=== PATIENT | male | born 1985 | race Caucasian/White ===

== ENCOUNTER 2022-01-03 01:45 | Emergency (ER) | payer MEDICARE, MEDICAID ==
[~2022-01-03] VITALS: Ht 183 cm; Wt 132.0 kg
[~2022-01-03 01:45] MED LIST: ABILIFY; CEPH500C PO; CLIN-144 PO; GBPN100C PO; RESPERIDOL; SERT50TA PO; TRAZODONE; [UNRECOGNIZED DRUG - OTHER]
--- NOTE | 2022-01-03 02:11 | ED Psychosocial ---
General Chief Complaint: Psych/Social Disorder Stated Complaint: MEDICAL CLEARANCE Source: patient Exam Limitations: no limitations (GRETA HORTA MD) History of Present Illness Date Seen by Provider: Jan 03, 2022 Time Seen by Provider: 01:58 Initial Comments Patient is a 36-year-old male with a history of bipolar disorder who presents to the emergency department in the custody of police for "medical screening". Apparently family called police this evening because the patient was acting bizarrely. He has been hypersexual. He had a screened by mental health [facility] [employer] and mental health recommended placement in a psychiatric facility. They are pursuing involuntary commitment. Patient presents acting manic. He is hypersexual talking about vaginas and using various terminology to describe them. He is constantly talking, not making much sense but is aware that he is at the hospital and would like to go home so he could smoke while pot. He does not really answer questions directly. He initially declines evaluation for placement. Does not want to have his blood drawn. Appears to be responding to internal stimuli. HPI, review of systems, past medical family social history impossible to obtain secondary to his manic state. Timing/Duration: this evening Severity: severe (GRETA HORTA MD) Allergies and Home Medications Allergies Coded Allergies: aspirin (Verified Allergy, Unknown, 08/06/05) Patient Home Medication List Home Medication List Reviewed: Yes (GRETA HORTA MD) , (Reported) Entered as Reported by: FERCHO ISIDRO on 12/01/081952 Cephalexin Monohydrate (Cephalexin) 500 Mg Capsule, 1 EACH PO QID Prescribed by: CRISTEL CROSS on 07/04/13 2335 Clindamycin HCl (Clindamycin HCl) 300 Mg Capsule, 300 MG PO TID Prescribed by: TALA REED on 02/11/15 153 Sertraline Hcl (Zoloft) 50 Mg Tablet, 1 TAB PO DAILY, (Reported) Entered as Reported by: JORGE LUIS ROJAS on 07/04/132035 [Phanap] , (Reported) Entered as Reported by: JOHN PAUL WARNER on 07/04/11 1524 Review of Systems Constitutional: see HPI difficult to obtain secondary to manic state (GRETA HORTA MD) Past Ustlcxm-Saicfj-Ssyauf Hx Past Medical History Reproductive Disorders: No Sexually Transmitted Disease: No ADD/ADHD, Suicide Attempts, Bipolar (GRETA HORTA MD) Physical Exam Vital Signs - First Documented 01/03/22 01:55 Temp 36.0 Pulse 55 Resp 18 B/P (MAP) 147/101 (116) Pulse Ox 100 O2 Delivery Room Air (CRISTEL BHAGAT MD) Capillary Refill : (GRETA HORTA MD) Height, Weight, BMI Height: 6'9" Weight: 290lbs. oz. 131.719068sa; BMI Method:Stated General Appearance: no apparent distress, thin HEENT: PERRL/EOMI Neck: normal inspection Respiratory: normal breath sounds, no respiratory distress, no accessory muscle use Cardiovascular: regular rate, rhythm Extremities: normal range of motion Neurologic/Psychiatric: alert Appearance/Memory: disheveled, impaired insight Behavior/Eye Contact: increased rate of speech Thoughts/Hallucinations: flight of ideas, other (hyper sexual) Skin: normal color, warm/dry (GRETA HORTA MD) Progress/Results/Core Measures Results/Orders Lab Results Laboratory Tests Test 01/03/22 02:47 01/03/22 03:26 01/03/22 04:44 Range/Units Urine Color DARK YELLOW Urine Clarity CLEAR Urine pH 5.5 5-9 Urine Specific Concepcion >=1.030 1.016-1.022 Urine Protein NEGATIVE NEGATIVE Urine Glucose (UA) NEGATIVE NEGATIVE Urine Ketones 1+ H NEGATIVE Urine Nitrite NEGATIVE NEGATIVE Urine Bilirubin NEGATIVE NEGATIVE Urine Urobilinogen 0.2 < = 1.0 MG/DL Urine Leukocyte Esterase NEGATIVE NEGATIVE Urine RBC (Auto) NEGATIVE NEGATIVE Urine RBC NONE /HPF Urine WBC RARE /HPF Urine Squamous Epithelial Cells 2-5 /HPF Urine Crystals NONE /LPF Urine Bacteria NEGATIVE /HPF Urine Casts NONE /LPF Urine Mucus SMALL H /LPF Urine Culture Indicated NO Urine Opiates Screen NEGATIVE NEGATIVE Urine Oxycodone Screen NEGATIVE NEGATIVE Urine Methadone Screen NEGATIVE NEGATIVE Urine Propoxyphene Screen NEGATIVE NEGATIVE Urine Barbiturates Screen NEGATIVE NEGATIVE Ur Tricyclic Antidepressants Screen NEGATIVE NEGATIVE Urine Phencyclidine Screen NEGATIVE NEGATIVE Urine Amphetamines Screen NEGATIVE NEGATIVE Urine Methamphetamines Screen NEGATIVE NEGATIVE Urine Benzodiazepines Screen NEGATIVE NEGATIVE Urine Cocaine Screen NEGATIVE NEGATIVE Urine Cannabinoids Screen POSITIVE H NEGATIVE White Blood Count 8.9 4.3-11.0 10^3/uL Red Blood Count 5.07 4.30-5.52 10^6/uL Hemoglobin 14.7 13.3-17.7 g/dL Hematocrit 44 40-54 % Mean Corpuscular Volume 86 80-99 fL Mean Corpuscular Hemoglobin 29 25-34 pg Mean Corpuscular Hemoglobin Concent 34 32-36 g/dL Red Cell Distribution Width 12.9 10.0-14.5 % Platelet Count 173 130-400 10^3/uL Mean Platelet Volume 11.2 9.0-12.2 fL Immature Granulocyte % (Auto) 0 % Neutrophils (%) (Auto) 74 42-75 % Lymphocytes (%) (Auto) 18 12-44 % Monocytes (%) (Auto) 7 0-12 % Eosinophils (%) (Auto) 1 0-10 % Basophils (%) (Auto) 0 0-10 % Neutrophils # (Auto) 6.6 1.8-7.8 10^3/uL Lymphocytes # (Auto) 1.6 1.0-4.0 10^3/uL Monocytes # (Auto) 0.6 0.0-1.0 10^3/uL Eosinophils # (Auto) 0.1 0.0-0.3 10^3/uL Basophils # (Auto) 0.0 0.0-0.1 10^3/uL Immature Granulocyte # (Auto) 0.0 0.0-0.1 10^3/uL Sodium Level 138 135-145 MMOL/L Potassium Level 3.4 L 3.6-5.0 MMOL/L Chloride Level 104 98-107 MMOL/L Carbon Dioxide Level 21 21-32 MMOL/L Anion Gap 13 5-14 MMOL/L Blood Urea Nitrogen 19 H 7-18 MG/DL Creatinine 0.84 0.60-1.30 MG/DL Estimat Glomerular Filtration Rate 114 BUN/Creatinine Ratio 23 Glucose Level 128 H 70-105 MG/DL Calcium Level 10.1 8.5-10.1 MG/DL Corrected Calcium 8.5-10.1 MG/DL Total Bilirubin 0.6 0.1-1.0 MG/DL Aspartate Amino Transf (AST/SGOT) 25 5-34 U/L Alanine Aminotransferase (ALT/SGPT) 27 0-55 U/L Alkaline Phosphatase 59 40-136 U/L Total Protein 7.9 6.4-8.2 GM/DL Albumin 4.6 H 3.2-4.5 GM/DL Salicylates Level < 5.0 L 5.0-20.0 MG/DL Acetaminophen Level < 10 L 10-30 UG/ML Serum Alcohol < 10 <10 MG/DL SARS-CoV-2 RNA (RT-PCR) Not Detected Not Detecte (CRISTEL BHAGAT MD) My Orders Orders - CRISTEL BHAGAT MD Olanzapine Orally Dissolve Tab (Zyprexa (01/03/22 09:30) Olanzapine Orally Dissolve Tab (Zyprexa (01/03/22 10:15) Olanzapine Tablet (Zyprexa Tablet) (01/04/22 06:15) Olanzapine Tablet (Zyprexa Tablet) (01/04/22 13:15) General/Regular (01/04/22 Breakfast) (CRISTEL BHAGAT MD) Medications Given in ED Current Medications Medications Dose Ordered Sig/Tariq Route Start Time Stop Time Status Last Admin Dose Admin Olanzapine 2.5 mg ONCE ONCE PO 01/04/22 06:15 01/04/22 06:17 DC 01/04/22 06:23 2.5 MG Olanzapine 2.5 mg ONCE ONCE PO 01/04/22 13:15 01/04/22 13:16 DC 01/04/22 13:52 2.5 MG (CRISTEL BHAGAT MD) Vital Signs/I&O 01/04/22 01/04/22 06:19 13:38 Temp 37.0 37.0 Pulse 85 84 Resp 18 18 B/P (MAP) 133/92 (106) 115/67 (83) Pulse Ox 100 100 O2 Delivery Room Air Room Air (CRISTEL BHAGAT MD) Progress Progress Note : Time: 05:12 Progress Note Patient did not settle with the geodon IM well at all, remained up and agitated, hollering and continue to have pressured speech. He was asking to be discharged to home repeatedly. Further history from the patient's sister, whom the nurse called revealed he had been aggressive towards his girlfriend and her children earlier in the night. He has been acting aggressively and bizarrely per sister. threatening people. He was finally somewhat compliant with the process for medical screening, ie blood draw. We did, after waiting quite a while, ask him if he would take more mediaction to calm his nerves and he complied. ativan 2mg ordered PO. He has taken it and at this time is sleeping/resting quietly. [facility] has faxed us paperwork on his involuntary hold and they are attempting to find bed placement for him. (GRETA HORTA MD) Progress Note #1: Time: 10:01 Progress Note Patient is awake and alert. He is expressing a strong desire to go home. He asked staff for a prosecutor to mandate his release. He does not appear psychotic at this time. He is alert and oriented ambulating about the room. Patient has previously been on Fanapt as prescribed by Irais at [facility]. I ordered Zyprexa but he declined to take it. He reports being compliant with his medications at home. He does not recall being hypersexual, manic, aggressive, or threatening last night. He reports he was very high on marijuana which he typically smokes daily. I explained to him that I am not at liberty to discharge him from the hospital and provided him with the rationale for that limitation. He is asking who he may talk to about returning home since he does not appear psychotic, threatening, or aggressive at this time. I have contacted the crisis hotline to ask if a screener would be willing to visit with him again. It appears that his screening is still in the process and attempt to place him has not yet been made. A hold was placed on him last night for involuntary admission. Patient has not attempted to elope and excepted my explanation on my limitations for his disposition at this time. I am awaiting a callback from the crisis line to inquire about a rescreen. Patient reports he is physically feeling well at this time. He just wants to go home and sleep. Progress Note #2: Time: 10:17 Progress Note Patient was again pressing nursing staff to be discharged. I again explained to him that that is not possible and provided him the rationale for that. He was apologetic and accepted the explanation. I again offered him the Zyprexa to help him with the anxiety of the situation. He understood the explanation and that the Zyprexa was a substitute for his usual antipsychotic medication. He accepted the Zyprexa dose. Zyprexa 2.5 mg sublingual was dispensed. A low-dose was used to prevent him from becoming excessively somnolent for a rescreen if that is possible. Progress Note #3: Time: 13:06 Progress Note Nursing staff reports conferencing amongst the behavioral health professionals within the community and at [facility] has resulted in the recommendation to pursue involuntary admission and deny patient's request to rescreen. Based on prior experiences and presentation of this current episode, they believe he presents a significant risk of recurrent aggressive behavior that may be harmful to self or others. We are awaiting placement. Progress Note #4: Time: 13:11 Progress Note Transfer has been accepted by Dr. Mary to [facility]. We we will treat with an additional dose of Zyprexa to help with demeanor during transport. (CRISTEL BHAGAT MD) Progress Note : Progress Note 1800--ASSUMED CARE FROM DR. BHAGAT AT [facility]. PLACEMENT IS PENDING AT THIS TIME. PT HAS BEEN CLEARED MEDICALLY. PT IS RESTING QUIETLY AT THIS TIME. 2133--[facility] HAVE DECLINED PT, DUE TO NO AVAILABLE BEDS. NO BEDS AVAILABLE UNTIL THURSDAY SOMETIME AT [place]. [place] HAS DECLINED PT. [facility] WILL START TRYING TO FIND PLACEMENT AGAIN AFTER 0800 IN THE MORNING. 2135--CALLED [email or web address]. LEFT MESSAGE ON MACHINE 2136--CALLED [facility]. NO BEDS AVAILABLE 2139--CALLED [facility] IN [place], THEY WILL NOT STATE IF THE DO OR DO NOT HAVE BEDS. PT CONTINUES TO SLEEP SOUNDLY 0003--PT IS AWAKE AND "CRYING"SOBBING--NO TEARS, AND ACTING SOMEWHAT ANXIOUS. PT STATES HE IS FINE AND FEELS BETTER, AND IS ASKING ABOUT GOING HOME, ADVISED HIM THAT PLACEMENT WAS PENDING AND IT HAD BEEN DETERMINED THAT HE NEEDED INPATIENT TREATMENT AND WAS NOT SAFE FOR HIM TO GO HOME AT THIS TIME,, AND ADDITIONAL ZYPREXA GIVEN. LAST DOSE 0930 THIS AM. NO OTHER MEDICATIONS SINCE THEN. PT TOOK MEDICATION WITHOUT ANY ARGUMENT. HE THEN WENT BACK TO SLEEP. 0600--CARE TURNED BACK OVER TO DR. BHAGAT, PLACEMENT IS PENDING. VITALS STABLE. PT HAS REMAINED COOPERATIVE DURING THE NIGHT. (MARIAJOSE KOHLER DO) Initial ECG Impression Date: Jan 03, 2022 Initial ECG Impression Time: 03:35 Initial ECG Rate: 42 Initial ECG Rhythm: S.Russell Initial ECG Intervals: Normal Initial ECG Impression: Normal (GRETA HORTA MD) Departure Impression Primary Impression: acute manic episode Additional Impressions: Marijuana dependence Aggressive behavior Disposition: 65 XFER TO PSYCH HOSP/UNIT Condition: Stable Transfer Transfer Reason: Exceeds level of care Time Spoke to Accepting Phy: 13:00 Transfer Progress Notes Transfer accepted by Dr. Mary. Transfer Time: 14:02 Transfer Facility: [facility] Method of Transfer: Law Enforcement (CRISTEL BHAGAT MD) Departure-Patient Inst. Referrals: [facility] (PCP/Family) Primary Care Physician GRETA HORTA MD Jan 03, 2022 02:11 CRISTEL BHAGAT MD Jan 03, 2022 10:05 MARIAJOSE KOHLER DO Jan 03, 2022 19:00
[2022-01-03] MEDS ORDERED: ZIPRASIDONE 20 MG INJ (GEODON) VIAL IM ONE (02:15)
[2022-01-03] MEDS ORDERED: WATER (STERILE) FOR INJ 10 ML BTL INJ SCH (02:15)
[2022-01-03 02:52] LABS: BILIRUBIN,URINE NEGATIVE (NEGATIVE); CLARITY,URINE CLEAR; COLOR,URINE DARK YELLOW; GLUCOSE, URINE (UA) NEGATIVE (NEGATIVE); KETONES,URINE 1+ (NEGATIVE); LEUKOCYTE ESTERASE ,URINE NEGATIVE (NEGATIVE); NITRITE,URINE NEGATIVE (NEGATIVE); PH,URINE 5.5 (5-9); PROTEIN,URINE NEGATIVE (NEGATIVE)
[2022-01-03 03:03] LABS: WBC,URINE RARE /HPF
[2022-01-03 03:04] LABS: AMPHETAMINE SCREEN, URINE NEGATIVE (NEGATIVE); BACTERIA,URINE NEGATIVE /HPF; BARBITURATE SCREEN URINE NEGATIVE (NEGATIVE); BENZODIAZEPINES SCREEN URINE NEGATIVE (NEGATIVE); CANNABINOID SCREEN, URINE POSITIVE (NEGATIVE); COCAINE SCREEN URINE NEGATIVE (NEGATIVE); METHADONE STAT NEGATIVE (NEGATIVE); OPIATE SCREEN URINE NEGATIVE (NEGATIVE); OXYCODONE STAT NEGATIVE (NEGATIVE); PROPOXYPHENE STAT NEGATIVE (NEGATIVE); TRICYCLIC ANTIDEPRESSANTS SCRE NEGATIVE (NEGATIVE)
[2022-01-03 03:32] LABS: BASOPHILS % (AUTO) 0 % (0-10); EOSINOPHILS # (AUTO) 0.1 10^3/uL (0.0-0.3); EOSINOPHILS % (AUTO) 1 % (0-10); HEMATOCRIT 44 % (40-54); HEMOGLOBIN 14.7 g/dL (13.3-17.7); LYMPHOCYTES # (AUTO) 1.6 10^3/uL (1.0-4.0); LYMPHOCYTES % (AUTO) 18 % (12-44); MEAN CORPUSCULAR HEMOGLOBIN 29 pg (25-34); MEAN CORPUSCULAR HGB CONC 34 g/dL (32-36); MEAN CORPUSCULAR VOLUME 86 fL (80-99); MEAN PLATELET VOLUME 11.2 fL (9.0-12.2); MONOCYTES # (AUTO) 0.6 10^3/uL (0.0-1.0); MONOCYTES % (AUTO) 7 % (0-12); NEUTROPHILS # (AUTO) 6.6 10^3/uL (1.8-7.8); NEUTROPHILS % (AUTO) 74 % (42-75); PLATELET COUNT 173 10^3/uL (130-400); WHITE BLOOD COUNT 8.9 10^3/uL (4.3-11.0)
[2022-01-03 03:39] LABS: ALBUMIN 4.6 GM/DL (3.2-4.5); CHLORIDE 104 MMOL/L (98-107); POTASSIUM 3.4 MMOL/L (3.6-5.0); SODIUM 138 MMOL/L (135-145)
[2022-01-03 03:40] LABS: CALCIUM 10.1 MG/DL (8.5-10.1)
[2022-01-03 03:42] LABS: GLUCOSE 128 MG/DL (70-105); TOTAL PROTEIN 7.9 GM/DL (6.4-8.2)
[2022-01-03 03:43] LABS: BILIRUBIN,TOTAL 0.6 MG/DL (0.1-1.0); CARBON DIOXIDE 21 MMOL/L (21-32)
[2022-01-03 03:45] LABS: ALKALINE PHOSPHATASE 59 U/L (40-136)
[2022-01-03 03:46] LABS: CREATININE SERUM 0.84 MG/DL (0.60-1.30); GFR ESTIMATED 114
[2022-01-03 03:47] LABS: ACETAMINOPHEN < 10 UG/ML (10-30); BUN/CREATININE RATIO 23
[2022-01-03 03:48] LABS: SALICYLATE < 5.0 MG/DL (5.0-20.0)
[2022-01-03 03:49] LABS: ALANINE AMINOTRANSFERASE 27 U/L (0-55)
[2022-01-03] MEDS ORDERED: LORazepam 1 MG (ATIVAN) TAB PO STA (04:14)
[2022-01-03] MEDS ORDERED: LORazepam 0.5 MG (ATIVAN) TABLET ONE (04:24)
[2022-01-03] MEDS ORDERED: LORazepam 0.5 MG (ATIVAN) TABLET PO STA (04:28)
[2022-01-03] MEDS ORDERED: OLANZapine 5 MG ODT (ZyPREXA ZYDIS) ONE (09:22)
[2022-01-03] MEDS: OLANZapine 5 MG ODT (ZyPREXA ZYDIS) PO ONE ×2 (10:13→10:19)
[2022-01-03] MEDS ORDERED: OLANZapine 5 MG ODT (ZyPREXA ZYDIS) SL ONE (10:15)
[2022-01-03] MEDS ORDERED: OLANZapine 2.5 MG (ZyPREXA) TAB PO ONE (10:15)
[2022-01-04] MEDS ORDERED: OLANZapine 5 MG ODT (ZyPREXA ZYDIS) PO ONE (00:15)
[2022-01-04] MEDS ORDERED: OLANZapine 2.5 MG (ZyPREXA) TAB PO ONE ×2 (06:15→13:15)
[2022-01-04 14:02] VITALS: BP 115/67
== END 2022-01-04 14:02 ==
LOC: EDUNIT# 01:45 → ER 01:47
DX: F31.9 Bipolar disorder, unspecified (principal); F12.20 Cannabis dependence, uncomplicated; Z28.310 Unvaccinated for COVID-19; Z20.822 Contact with and (suspected) exposure to COVID-19
CPT/HCPCS: 80053; 80306; 81000; 85025; 87636; 93005; 99283; G0480 ×3; 36415; 80320; 80329